=== PATIENT | male | born 1960 | race American Indian/Alaskan Native ===

== ENCOUNTER 2018-04-10 00:59 | Inpatient (IN) | payer BC ==
[2018-04-10 02:04] LABS: Basophils % (Auto) 0.3 % (0.0-1.8); Eosinophils % (Auto) 0.4 % (0.0-4.3); Hematocrit 41.1 % (35.5-45.6); Hemoglobin 13.5 gm/dl (11.8-15.2); Lymphocytes # (Auto) 1.9 K/mm3 (1.2-5.4); Lymphocytes % (Auto) 17.7 % (13.4-35.0); Mean Corpuscular HGB Conc 33 % (32-34); Mean Corpuscular Hemoglobin 28 pg (28-32); Mean Corpuscular Volume 85 fl (84-94); Monocytes # (Auto) 1.1 K/mm3 (0.0-0.8); Platelet Count 274 K/mm3 (140-440); Red Blood Count 4.82 M/mm3 (3.65-5.03); Red Cell Distribution Width 13.8 % (13.2-15.2)
[2018-04-10] MEDS ORDERED: CARDIZEM IV ONE (02:26)
[2018-04-10 02:49] LABS: BUN/Creatinine Ratio 23; Blood Urea Nitrogen 21 mg/dL (9-20); Calcium 9.2 mg/dL (8.4-10.2); Hemolysis Index 7
--- NOTE | 2018-04-10 02:57 | Emergency Department Report ---
HPI - General Chief Complaint: Dyspnea/Respdistress Time Seen by Provider: 04/10/18 02:17 - HPI HPI: 57-year-old male presents to the emergency department by EMS from home with a complaint of a one to 2 day history of some shortness of breath. Patient was found to have a pulse ox of 82% on room air. He was placed on a nonrebreather by EMS and placed on a BiPAP upon arrival. Patient is currently in atrial fibrillation with RVR which he says that he has a history of. He also has a history of CHF, hypertension and sleep apnea for which he uses a CPAP machine. He denies any chest pain, nausea, vomiting or fever. He did not take anything for her symptoms prior to presentation. His primary care physician is Dr. Ray Dooley and his pricing lead is Dr. Mathur. No recent travel or sick contacts at home. ED Past Medical Hx - Past Medical History Previous Medical History?: Yes Hx Hypertension: Yes Hx Congestive Heart Failure: Yes Hx Arthritis: Yes Additional medical history: Pancreatitis, history of Atrial fibbrillation - Social History Smoking Status: Never Smoker - Medications Home Medications: Home Medications Medication Instructions Recorded Confirmed Last Taken Type Dapagliflozin Propanediol [Farxiga] 10 mg PO DAILY 03/12/18 03/12/18 03/11/18 History Digoxin [Lanoxin] 0.25 mg PO DAILY 03/12/18 03/12/18 03/11/18 History Losartan [Cozaar] 50 mg PO QDAY 03/12/18 03/12/18 03/11/18 History Metoprolol Tartrate 100 mg PO DAILY 03/12/18 03/12/18 03/11/18 History Potassium Chloride [K-Dur] 10 meq PO QDAY 03/12/18 03/12/18 03/11/18 History Rivaroxaban [Xarelto] 10 mg PO QDAY 03/12/18 03/12/18 03/11/18 History Simvastatin [Zocor TAB] 40 mg PO QHS 03/12/18 03/12/18 03/11/18 History amLODIPine [Norvasc] 10 mg PO DAILY 03/12/18 03/12/18 03/11/18 History Diltiazem HCl [Diltiazem ER] 240 mg PO QPM #30 cap.er.deg 03/16/18 Unknown Rx ED Review of Systems ROS: Stated complaint: MICAELA Other details as noted in HPI Comment: All other systems reviewed and negative Constitutional: denies: chills, fever Eyes: denies: eye pain, eye discharge, vision change ENT: denies: ear pain, throat pain Respiratory: cough, shortness of breath Cardiovascular: denies: chest pain, edema Gastrointestinal: denies: abdominal pain, nausea, diarrhea Genitourinary: denies: urgency, dysuria Musculoskeletal: denies: back pain, joint swelling, arthralgia Skin: denies: rash, lesions Neurological: denies: headache, weakness, paresthesias Physical Exam - Physical Exam Vital Signs: Vital Signs 04/10/18 04/10/18 04/10/18 01:11 01:14 01:20 Temperature 98.9 F Pulse Rate 143 H 127 H Respiratory 20 20 Rate O2 Sat by Pulse 100 99 Oximetry 04/10/18 01:36 Temperature Pulse Rate 146 H Respiratory Rate O2 Sat by Pulse Oximetry Physical Exam: GENERAL: The patient is well-developed well-nourished. HENT: Normocephalic. Atraumatic. Patient has moist mucous membranes. EYES: Extraocular motions are intact. Pupils equal reactive to light bilaterally. NECK: Supple. Trach is midline. CHEST/LUNGS: Coarse breath sounds without chest. There is some tachypnea. No accessory muscle use and no respiratory distress while on BiPAP. HEART/CARDIOVASCULAR: Irregularly irregular with tachycardia. ABDOMEN: Abdomen is soft, nontender. Patient has normal bowel sounds. There is no abdominal distention. SKIN: Skin is warm and dry. NEURO: The patient is awake, alert, and oriented. The patient is cooperative. The patient has no focal neurologic deficits. The patient has normal speech. MUSCULOSKELETAL: There is no tenderness or deformity. There is no limitation range of motion. There is no evidence of acute injury. ED Course Vital Signs 04/10/18 04/10/18 04/10/18 01:11 01:14 01:20 Temperature 98.9 F Pulse Rate 143 H 127 H Respiratory 20 20 Rate O2 Sat by Pulse 100 99 Oximetry 04/10/18 01:36 Temperature Pulse Rate 146 H Respiratory Rate O2 Sat by Pulse Oximetry ED Medical Decision Making - Lab Data Result diagrams: 04/10/18 01:45 04/10/18 01:45 - EKG Data -: EKG Interpreted by Me - EKG Data Interpretation: unchanged when compared t (03/13/18), other (atrial fibrillation , left axis deviation, RVR at 130 bpm, prolonged QTC, nonspecific T waves) - Radiology Data Radiology results: report reviewed Chest x-ray shows patchy airspace disease in both upper lobes, left side worse than right side. Cardiomegaly. Underlying congestion cannot be excluded. - Medical Decision Making Patient presents with a few days of shortness of breath. He has a history of atrial fibrillation but appears to be in A. fib with RVR and did require Cardizem drip for rate control. Chest x-ray shows some patchy opacities that could be concerning for pneumonia versus vascular congestion/CHF. Blood cultures were obtained and the patient was started on antibiotics. He has remained on BiPAP. He will be admitted to the hospital for further evaluation and treatment and has been accepted for admission by the hospitalist, Dr. Griffith. The patient is on Xarelto and takes it compliantly so low suspicion for PE as the etiology of his symptmos. - Differential Diagnosis dysrythmia, COPD, Pneumonia, CHF Critical Care Time: No Critical care attestation.: If time is entered above; I have spent that time in minutes in the direct care of this critically ill patient, excluding procedure time. ED Disposition Clinical Impression: Atrial fibrillation with RVR Dyspnea Qualifiers: Dyspnea type: unspecified Qualified Code(s): R06.00 - Dyspnea, unspecified CHF (congestive heart failure) Qualifiers: Heart failure type: unspecified Heart failure chronicity: acute on chronic Qualified Code(s): I50.9 - Heart failure, unspecified Disposition: OP ADMIT IP TO THIS HOSP Is pt being admited?: Yes Condition: Fair Referrals: RAY DOOLEY MD [Primary Care Provider] - 3-5 Days Time of Disposition: 05:20
--- NOTE | 2018-04-10 03:14 | XRay Report ---
FINAL REPORT EXAM: XR CHEST 1V AP HISTORY: MICAELA TECHNIQUE: A portable upright view of the chest was submitted. There are no previous studies available for comparison. FINDINGS: The heart is moderately enlarged. There is patchy airspace disease particularly in both upper lobes, left side worse than right side. Underlying congestion cannot be excluded. Pleural fluid is not seen. There EKG leads overlying the chest wall. The skeletal structures are unremarkable. IMPRESSION: Patchy airspace disease in both upper lobes, left side worse than right side as described. Cardiomegaly. Underlying congestion cannot be excluded.
[2018-04-10] MEDS ORDERED: LEVAQUIN 750MG/150ML 750 MG/150 ML BAG IV ONE (03:32)
[2018-04-10] MEDS ORDERED: LASIX IV ONE ×2 (03:32→14:00)
[2018-04-10] MEDS ORDERED: LASIX ONE (04:26)
[2018-04-10] MEDS ORDERED: CARDIZEM/D5W 100MG/100ML 100 MG/100 ML BAG IV SCH (05:00)
[2018-04-10] MEDS ORDERED: SODIUM CHLORIDE FLUSH SYRINGE 10 ML IV PRN ×2 (07:55→08:04)
[2018-04-10] MEDS ORDERED: ZOFRAN IV PRN ×2 (07:55→08:04)
[2018-04-10] MEDS ORDERED: TYLENOL PO PRN ×2 (07:55→08:04)
[2018-04-10] MEDS ORDERED: PERCOCET 5/325 PO PRN (07:55)
[2018-04-10] MEDS ORDERED: MORPHINE IV PRN (07:55)
--- NOTE | 2018-04-10 08:04 | Event Note ---
Date: 04/10/18 See dictated H/p in reports A fib with RVR Pneumonia
[2018-04-10] MEDS ORDERED: DUONEB *Not for PRN Use IH ×2 (08:05→09:58)
[2018-04-10 08:35] LABS: Basophils % (Auto) 0.3 % (0.0-1.8); Eosinophils # (Auto) 0.1 K/mm3 (0.0-0.4); Hematocrit 40.6 % (35.5-45.6); Hemoglobin 13.2 gm/dl (11.8-15.2); Lymphocytes # (Auto) 2.5 K/mm3 (1.2-5.4); Lymphocytes % (Auto) 24.2 % (13.4-35.0); Mean Corpuscular HGB Conc 33 % (32-34); Mean Corpuscular Hemoglobin 28 pg (28-32); Mean Corpuscular Volume 85 fl (84-94); Monocytes # (Auto) 1.1 K/mm3 (0.0-0.8); Monocytes % (Auto) 10.6 % (0.0-7.3); Platelet Count 257 K/mm3 (140-440); Red Blood Count 4.76 M/mm3 (3.65-5.03); Red Cell Distribution Width 13.9 % (13.2-15.2)
[2018-04-10 08:45] LABS: BUN/Creatinine Ratio 21; Blood Urea Nitrogen 23 mg/dL (9-20); Calcium 8.9 mg/dL (8.4-10.2); Hemolysis Index 6
[2018-04-10] MEDS ORDERED: LOPRESSOR ONE (08:51)
[2018-04-10] MEDS: LOPRESSOR PO SCH (09:47)
[2018-04-10] MEDS: K-DUR PO SCH (09:47)
[2018-04-10] MEDS: PEPCID IV SCH ×2 (09:47→22:49)
[2018-04-10] MEDS: COZAAR PO SCH (09:47)
[2018-04-10] MEDS: LANOXIN PO SCH (09:47)
[2018-04-10] MEDS: NORVASC PO SCH (09:47)
[2018-04-10] MEDS: SODIUM CHLORIDE FLUSH SYRINGE 10 ML IV SCH ×2 (09:48→22:49)
[2018-04-10] MEDS ORDERED: SODIUM CHLORIDE FLUSH SYRINGE 10 ML IV SCH (10:00)
--- NOTE | 2018-04-10 10:13 | History and Physical Report ---
CHIEF COMPLAINT: Shortness of breath for 2 days' duration. HISTORY OF PRESENT ILLNESS: A 57-year-old -[place] male comes in for shortness of breath of 2 days' duration. In the Emergency Room, his sats was 82% on room air. He was placed on nonrebreather and placed on BiPAP upon arrival. The patient was also found in atrial fibrillation with rapid ventricular rate. No vomiting, no fever, no chills. Basic complaint was palpitations and increasing shortness of breath. PAST MEDICAL HISTORY: Significant for hypertension, congestive heart failure, arthritis, pancreatitis, history of atrial fibrillation. SMOKING HISTORY: Does not smoke. FAMILY HISTORY: Hypertension. PAST SURGICAL HISTORY: Unavailable. CURRENT MEDICATIONS: Losartan 50 mg daily, metoprolol 100 mg p.o. daily, Xarelto 10 mg p.o. daily, amlodipine 10 mg p.o. daily. REVIEW OF SYSTEMS: Significant for severe wheezing and shortness of breath. Cough productive of mucoid sputum. Otherwise, review of systems is essentially negative. PHYSICAL EXAMINATION: GENERAL: Late middle-aged male. VITAL SIGNS: Blood pressure is 113/88, temperature is 98, pulse is 133, respirations are 13. HEENT: Unremarkable. Pupils equal and reactive. NECK: Supple, no lymphadenopathy, no thyromegaly. LUNGS: Clear to auscultation and percussion. Good air entry. CARDIOVASCULAR: S1, S2 heard. No gallop, no murmur, no rub. Apical impulse in left fifth intercostal space and midclavicular line. LUNGS: Bilateral inspiratory and expiratory rhonchi present. ABDOMEN: Soft and benign. No hepatosplenomegaly. No guarding, no rigidity. Hernial orifices are normal. EXTREMITIES: Good pedal pulses. No pedal edema. CENTRAL NERVOUS SYSTEM: Alert and oriented x 4, nonfocal exam. LABORATORY DATA: Significant for chest x-ray, patchy airspace disease in both upper lobes, left side worse than right side. White count is 10,600, H and H is 13.5 and 41.1, platelet count is 274,000. The blood gas was normal, pH of 7.489, pCO2 of 38, pO2 of 99, bicarbonate of 30. Chemistries are normal. Sodium was slightly low at 136, chloride is 94.8, BUN and creatinine is 21 and 0.9. BNP is 3446. ASSESSMENT AND PLAN: 1. Acute respiratory failure secondary to chronic obstructive pulmonary disease and pneumonia. This patient initiated on IV Solu-Medrol, DuoNeb, and IV antibiotics. 2. Bilateral pneumonia, especially both upper lobes. The patient to be continued on IV antibiotics, IV Solu-Medrol, and DuoNeb. 3. Rapid ventricular rate. The patient to be continued on digoxin and Cardizem. Also, metoprolol. 4. Hypertension. Continue losartan, metoprolol, and amlodipine. 5. Type 2 diabetes mellitus. Continue and other medicines. Check hemoglobin A1c. Accu-Chek with coverage. 6. Deep venous thrombosis prophylaxis, Lovenox 40 mg subcutaneous daily. [facility]# [id number] RADHA/MELISSA
[2018-04-10] MEDS ORDERED: PROVENTIL IH PRN (10:16)
[2018-04-10] MEDS: DUONEB *Not for PRN Use IH SCH ×3 (12:58→20:26)
--- NOTE | 2018-04-10 13:14 | Event Note ---
Date: 04/10/18 Patient was seen and evaluated this morning, patient was admitted for A. fib with RVR, pneumonia. Patient patient doesn't Cardizem drip and currently off the drip and he is on by mouth Cardizem, she is on IV antibiotics. Patient is transferred to telemetry.
[2018-04-10] MEDS: XARELTO PO SCH (13:50)
[2018-04-10] MEDS: CARDIZEM PO SCH ×3 (13:50→22:48)
[2018-04-10] MEDS ORDERED: K-DUR PO ONE (14:00)
[2018-04-10] MEDS ORDERED: POTASSIUM CHLORIDE FEEDTUBE ONE (14:00)
[2018-04-10] MEDS ORDERED: CARDIZEM CD PO SCH (18:00)
[2018-04-10] MEDS ORDERED: NON-FORMULARY (Diltiazem Hcl [Diltiazem Er] 240 MG) PO SCH (18:00)
[2018-04-10] MEDS ORDERED: NON-FORMULARY (Simvastatin 40 MG) PO SCH (22:00)
[2018-04-10] MEDS ORDERED: PRAVACHOL PO SCH (22:00)
[2018-04-10] MEDS: PRAVACHOL PO SCH (22:48)
[2018-04-10] MEDS: HumaLOG SUB-Q SCH (22:49)
[2018-04-11] MEDS: CARDIZEM PO SCH ×4 (00:40→17:54)
[2018-04-11 06:34] LABS: Hematocrit 38.5 % (35.5-45.6); Hemoglobin 12.8 gm/dl (11.8-15.2); Mean Corpuscular HGB Conc 33 % (32-34); Mean Corpuscular Hemoglobin 29 pg (28-32); Mean Corpuscular Volume 86 fl (84-94); Platelet Count 248 K/mm3 (140-440); Red Blood Count 4.49 M/mm3 (3.65-5.03)
[2018-04-11 06:36] LABS: Alanine Aminotransferase 16 units/L (7-56); Albumin 3.1 g/dL (3.9-5); BUN/Creatinine Ratio 29; Blood Urea Nitrogen 29 mg/dL (9-20); Calcium 8.8 mg/dL (8.4-10.2); Hemolysis Index 3
[2018-04-11 07:16] LABS: Band Neutrophils # (Manual) 0.2 K/mm3; Basophils % (Manual) 0 % (0.0-1.8); Eosinophils % (Manual) 0 % (0.0-4.3); Total Cells Counted 100
[2018-04-11 07:17] LABS: Platelet Estimate Consistent w Auto; RBC Morphology Normal
[2018-04-11] MEDS: HumaLOG SUB-Q SCH ×4 (07:29→21:59)
[2018-04-11] MEDS: DUONEB *Not for PRN Use IH SCH ×3 (07:40→19:50)
[2018-04-11] MEDS ORDERED: LEVAQUIN 750MG/150ML 750 MG/150 ML BAG IV SCH (10:00)
--- NOTE | 2018-04-11 10:30 | Consultation ---
History of Present Illness Consult date: 04/11/18 Requesting physician: LEIDY TRAVIS Consult reason: atrial fibrillation History of present illness: This is a 57-year-old gentleman with a past medical history of alcohol abuse currently reports abstinence, permanent atrial fibrillation, hypertension, dilated cardiomyopathy, COPD, history of pancreatitis, osteoarthritis, diabetes , and sleep apnea who presents to [facility] emergency department after developing subjective fevers, weakness, and shortness of breath and wheezing. The patient reports that over the past few days he has not felt well he was evaluated by his primary care provider and a chest x-ray was inconclusive they gave him oral answer biotics. He reports that he attempted to take the medication however he did not improve. He presented to [facility] emergency Department in the emergency department the patient was hypoxic with a pulse ox of 82% on room air a 12-lead EKG revealed atrial fibrillation with a rapid ventricular response and a chest x-ray revealed bilateral patchy airspace disease left greater than right. Currently the patient reports that he feels much better. He reports compliance with his medication and denies any alcohol use. Past History Past Medical History: atrial fib, COPD, diabetes, heart failure, hypertension Past Surgical History: No surgical history Social history: alcohol abuse (remote history). denies: smoking Family history: denies: CAD Medications and Allergies Allergies Allergy/AdvReac Type Severity Reaction Status Date / Time alprazolam [From Xanax] Allergy Unknown Verified 03/12/18 07:58 lisinopril Allergy Swelling Verified 04/10/18 01:11 Home Medications Medication Instructions Recorded Confirmed Last Taken Type Dapagliflozin Propanediol [Farxiga] 10 mg PO DAILY 03/12/18 04/10/18 1 Day Ago History ~04/09/18 Digoxin [Lanoxin] 0.25 mg PO DAILY 03/12/18 04/10/18 03/11/18 History Losartan [Cozaar] 50 mg PO QDAY 03/12/18 04/10/18 1 Day Ago History ~04/09/18 Metoprolol Tartrate 100 mg PO DAILY 03/12/18 04/10/18 1 Day Ago History ~04/09/18 Potassium Chloride [K-Dur] 10 meq PO QDAY 03/12/18 04/10/18 1 Day Ago History ~04/09/18 Rivaroxaban [Xarelto] 10 mg PO QDAY 03/12/18 04/10/18 1 Day Ago History ~04/09/18 Simvastatin [Zocor TAB] 40 mg PO QHS 03/12/18 04/10/18 1 Day Ago History ~04/09/18 amLODIPine [Norvasc] 10 mg PO DAILY 03/12/18 04/10/18 1 Day Ago History ~04/09/18 Diltiazem HCl [Diltiazem ER] 240 mg PO QPM #30 cap.er.deg 03/16/18 04/10/18 1 Day Ago Rx ~04/09/18 Active Meds: Active Medications Acetaminophen (Tylenol) 650 mg PO Q4H PRN PRN Reason: Pain MILD(1-3)/Fever >100.5/PETERS Albuterol (Proventil) 2.5 mg IH Q3HRT PRN PRN Reason: Shortness Of Breath Albuterol/Ipratropium (Duoneb *Not For Prn Use*) 1 ampul IH TIDRT [facility] Amlodipine Besylate (Norvasc) 10 mg PO DAILY [facility] Last Admin: 04/10/18 09:47 Dose: 10 mg Digoxin (Lanoxin) 0.25 mg PO DAILY [facility] Last Admin: 04/10/18 09:47 Dose: 0.25 mg Diltiazem HCl (Cardizem) 60 mg PO Q6HR [facility] Last Admin: 04/11/18 05:46 Dose: 60 mg Famotidine (Pepcid) 20 mg IV BID [facility] Last Admin: 04/10/18 22:49 Dose: 20 mg Levofloxacin/Dextrose (Levaquin 750mg/150ml) 750 mg in 150 mls @ 100 mls/hr IV Q24HR [facility]; Protocol Insulin Human Isoph/Insulin Regular (Humulin 70/30) 15 unit SUB-Q BIDDIAB [facility] Insulin Human Lispro (Humalog) 0 unit SUB-Q ACHS [facility]; Protocol Last Admin: 04/11/18 07:29 Dose: 6 unit Losartan Potassium (Cozaar) 50 mg PO QDAY [facility] Last Admin: 04/10/18 09:47 Dose: 50 mg Methylprednisolone Sodium Succinate (Solu-Medrol) 60 mg IV Q8HR [facility] Last Admin: 04/11/18 05:47 Dose: 60 mg Metoprolol Tartrate (Lopressor) 100 mg PO DAILY [facility] Last Admin: 04/10/18 09:47 Dose: 100 mg Morphine Sulfate (Morphine) 2 mg IV Q4H PRN PRN Reason: Pain, Moderate (4-6) Ondansetron HCl (Zofran) 4 mg IV Q8H PRN PRN Reason: Nausea And Vomiting Oxycodone/Acetaminophen (Percocet 5/325) 1 tab PO Q6H PRN PRN Reason: Pain, Moderate (4-6) Potassium Chloride (K-Dur) 10 meq PO QDAY [facility] Last Admin: 04/10/18 09:47 Dose: 10 meq Pravastatin Sodium (Pravachol) 80 mg PO QHS [facility] Last Admin: 04/10/18 22:48 Dose: 80 mg Rivaroxaban (Xarelto) 10 mg PO QDAY [facility]; Protocol Last Admin: 04/10/18 13:50 Dose: 10 mg Sodium Chloride (Sodium Chloride Flush Syringe 10 Ml) 10 ml IV PRN PRN PRN Reason: LINE FLUSH Sodium Chloride (Sodium Chloride Flush Syringe 10 Ml) 10 ml IV BID [facility] Last Admin: 04/10/18 22:49 Dose: 10 ml Review of Systems Constitutional: fever, no weight loss, no weight gain Cardiovascular: orthopnea, shortness of breath, dyspnea on exertion, no chest pain, no palpitations, no edema, no syncope Respiratory: shortness of breath, congestion, wheezing Gastrointestinal: no abdominal pain, no nausea, no vomiting, no change in bowel habits Genitourinary Male: no hematuria, no flank pain Rectal: no pain, no incontinence Musculoskeletal: no neck pain, no shooting arm pain Integumentary: no rash, no pruritis Neurological: no head injury, no transient paralysis Psychiatric: no memory loss, no change in sleep habits Endocrine: no cold intolerance, no heat intolerance Hematologic/Lymphatic: no easy bruising, no easy bleeding Allergic/Immunologic: no urticaria, no allergic rhinitis Physical Examination Vital Signs Pulse Resp 143 H 32 H 04/10/18 01:04 04/10/18 01:04 General appearance: no acute distress HEENT: Positive: PERRL, EOMI Neck: Positive: neck supple, trachea midline Cardiac: Positive: Reg Rate and Rhythm, Regular Rate Lungs: Positive: Decreased Breath Sounds Neuro: Positive: Grossly Intact Abdomen: Positive: Unremarkable, Soft, Active Bowel Sounds Male genitourinary: Positive: deferred Skin: Negative: Rash Extremities: Present: normal. Absent: edema Results 04/11/18 05:24 04/11/18 05:24 Cardiac Enzymes 04/11/18 Range/Units 05:24 AST 16 (5-40) units/L CBC 04/11/18 Range/Units 05:24 WBC 8.0 (4.5-11.0) K/mm3 RBC 4.49 (3.65-5.03) M/mm3 Hgb 12.8 (11.8-15.2) gm/dl Hct 38.5 (35.5-45.6) % Plt Count 248 (140-440) K/mm3 Comprehensive Metabolic Panel 04/11/18 Range/Units 05:24 Sodium 133 L (137-145) mmol/L Potassium 3.6 (3.6-5.0) mmol/L Chloride 91.5 L (98-107) mmol/L Carbon Dioxide 25 (22-30) mmol/L BUN 29 H (9-20) mg/dL Creatinine 1.0 (0.8-1.5) mg/dL Glucose 409 H (75-100) mg/dL Calcium 8.8 (8.4-10.2) mg/dL AST 16 (5-40) units/L ALT 16 (7-56) units/L Alkaline Phosphatase 69 (35-129) units/L Total Protein 6.1 L (6.3-8.2) g/dL Albumin 3.1 L (3.9-5) g/dL - Imaging and Cardiology Stress echo: report reviewed (Stress MPI 03/14/18: fixed inferior defect, small fixed inferolateral, small fixed anteroseptal/apical defect, EF 2-%) Echo: report reviewed (ECHO 03/13/18: EF 20-25%, mod LVH, trace MR) EKG interpretations - Telemetry EKG Rhythm: Atrial Fibrillation Assessment and Plan Acute hypoxic respiratory failure/COPD/PNA empiric antibiotics Solumedrol IV Obstructive sleep apnea Permanent atrial fibrillation Tele: AFIB w/RVR will likely improve once respiratory status stable Continue Toprol 100 QDAY/digoxin/cardizem 60Q6 Continue Xarelto Dilated CM EF 20-25% continue Toprol/Cozaar Follow up with Dr. Mathur as outpatient [phone] HTN stable Hyperlipidemia DM ETOH abuse / ETOH withdrawal/history of pancreatitis patient reports abstinence
--- NOTE | 2018-04-11 10:30 | Consultation ---
History of Present Illness Consult date: 04/11/18 Requesting physician: HUA GALEANA Reason for consult: dyspnea, hypoxemia, obstructive sleep apnea History of present illness: 57 y/o male admitted with shortness of breath, dyspnea. Found to be in afib with rvr and required bipap therapy. Elevated BNP and Hypertensive. CXR completed showed pulmonary edema. Patient also suffers from Sleep apnea and is followed by ENT. This am he is awake and alert. On the phone in no distress on nasal cannula. Wore bipap last night. Appears to have responded well to lasix therapy. Past History Past Medical History: atrial fib, hypertension, other (SHARRI) Past Surgical History: No surgical history Social history: no significant social history Medications and Allergies Allergies Allergy/AdvReac Type Severity Reaction Status Date / Time alprazolam [From Xanax] Allergy Unknown Verified 03/12/18 07:58 lisinopril Allergy Swelling Verified 04/10/18 01:11 Home Medications Medication Instructions Recorded Confirmed Last Taken Type Dapagliflozin Propanediol [Farxiga] 10 mg PO DAILY 03/12/18 04/10/18 1 Day Ago History ~04/09/18 Digoxin [Lanoxin] 0.25 mg PO DAILY 03/12/18 04/10/18 03/11/18 History Losartan [Cozaar] 50 mg PO QDAY 03/12/18 04/10/18 1 Day Ago History ~04/09/18 Metoprolol Tartrate 100 mg PO DAILY 03/12/18 04/10/18 1 Day Ago History ~04/09/18 Potassium Chloride [K-Dur] 10 meq PO QDAY 03/12/18 04/10/18 1 Day Ago History ~04/09/18 Rivaroxaban [Xarelto] 10 mg PO QDAY 03/12/18 04/10/18 1 Day Ago History ~04/09/18 Simvastatin [Zocor TAB] 40 mg PO QHS 03/12/18 04/10/18 1 Day Ago History ~04/09/18 amLODIPine [Norvasc] 10 mg PO DAILY 03/12/18 04/10/18 1 Day Ago History ~04/09/18 Diltiazem HCl [Diltiazem ER] 240 mg PO QPM #30 cap.er.deg 03/16/18 04/10/18 1 Day Ago Rx ~04/09/18 Active Meds: Active Medications Acetaminophen (Tylenol) 650 mg PO Q4H PRN PRN Reason: Pain MILD(1-3)/Fever >100.5/PETERS Albuterol (Proventil) 2.5 mg IH Q3HRT PRN PRN Reason: Shortness Of Breath Albuterol/Ipratropium (Duoneb *Not For Prn Use*) 1 ampul IH TIDRT [facility] Amlodipine Besylate (Norvasc) 10 mg PO DAILY [facility] Last Admin: 04/10/18 09:47 Dose: 10 mg Digoxin (Lanoxin) 0.25 mg PO DAILY [facility] Last Admin: 04/10/18 09:47 Dose: 0.25 mg Diltiazem HCl (Cardizem) 60 mg PO Q6HR [facility] Last Admin: 04/11/18 05:46 Dose: 60 mg Famotidine (Pepcid) 20 mg IV BID [facility] Last Admin: 04/10/18 22:49 Dose: 20 mg Levofloxacin/Dextrose (Levaquin 750mg/150ml) 750 mg in 150 mls @ 100 mls/hr IV Q24HR [facility]; Protocol Insulin Human Isoph/Insulin Regular (Humulin 70/30) 15 unit SUB-Q BIDDIAB [facility] Insulin Human Lispro (Humalog) 0 unit SUB-Q ACHS [facility]; Protocol Last Admin: 04/11/18 07:29 Dose: 6 unit Losartan Potassium (Cozaar) 50 mg PO QDAY [facility] Last Admin: 04/10/18 09:47 Dose: 50 mg Methylprednisolone Sodium Succinate (Solu-Medrol) 60 mg IV Q8HR [facility] Last Admin: 04/11/18 05:47 Dose: 60 mg Metoprolol Tartrate (Lopressor) 100 mg PO DAILY [facility] Last Admin: 04/10/18 09:47 Dose: 100 mg Morphine Sulfate (Morphine) 2 mg IV Q4H PRN PRN Reason: Pain, Moderate (4-6) Ondansetron HCl (Zofran) 4 mg IV Q8H PRN PRN Reason: Nausea And Vomiting Oxycodone/Acetaminophen (Percocet 5/325) 1 tab PO Q6H PRN PRN Reason: Pain, Moderate (4-6) Potassium Chloride (K-Dur) 10 meq PO QDAY [facility] Last Admin: 04/10/18 09:47 Dose: 10 meq Pravastatin Sodium (Pravachol) 80 mg PO QHS [facility] Last Admin: 04/10/18 22:48 Dose: 80 mg Rivaroxaban (Xarelto) 10 mg PO QDAY [facility]; Protocol Last Admin: 04/10/18 13:50 Dose: 10 mg Sodium Chloride (Sodium Chloride Flush Syringe 10 Ml) 10 ml IV PRN PRN PRN Reason: LINE FLUSH Sodium Chloride (Sodium Chloride Flush Syringe 10 Ml) 10 ml IV BID [facility] Last Admin: 04/10/18 22:49 Dose: 10 ml Review of Systems All systems: negative Physical Examination Vital signs: Vital Signs Pulse Resp 143 H 32 H 04/10/18 01:04 04/10/18 01:04 General appearance: no acute distress, alert Eyes: non-icteric ENT: oropharynx moist Neck: supple, no lymphadenopathy Effort: normal Ascultation: Bilateral: rales Percussion: Bilateral: not dull Tactile fremitus: Bilateral: normal Cardiovascular: irregular rhythm Gastrointestinal: normoactive bowel sounds, soft, non-tender Extremities: no edema Results - Laboratory Findings CBC and BMP: 04/11/18 05:24 04/11/18 05:24 ABG POC ABG pH 7.489 (7.35-7.45) H 04/10/18 06:32 POC ABG pCO2 37.9 (35-45) 04/10/18 06:32 POC ABG pO2 99 (80-105) 04/10/18 06:32 POC ABG HCO3 28.8 04/10/18 06:32 POC ABG Total CO2 30 04/10/18 06:32 POC ABG O2 Sat 98 04/10/18 06:32 Abnormal lab findings: Abnormal Labs 04/10/18 04/10/18 04/10/18 01:45 01:45 02:22 [place] % (Auto) 10.0 H [place] # 1.1 H Seg Neutrophils % 71.6 H Seg Neuts % (Manual) Lymphocytes % (Manual) Lymphocytes # (Manual) POC ABG pH Sodium 136 L Potassium Chloride 94.8 L BUN 21 H Glucose 191 H POC Glucose NT-Pro-B Natriuret Pep 3946 H Total Protein Albumin 04/10/18 04/10/18 04/10/18 06:32 08:19 08:19 [place] % (Auto) 10.6 H [place] # 1.1 H Seg Neutrophils % Seg Neuts % (Manual) Lymphocytes % (Manual) Lymphocytes # (Manual) POC ABG pH 7.489 H Sodium 136 L Potassium 3.5 L Chloride 95.2 L BUN 23 H Glucose 195 H POC Glucose NT-Pro-B Natriuret Pep Total Protein Albumin 04/10/18 04/10/18 04/11/18 12:55 22:07 05:24 [place] % (Auto) [place] # Seg Neutrophils % Seg Neuts % (Manual) 94.0 H Lymphocytes % (Manual) 3.0 L Lymphocytes # (Manual) 0.2 L POC ABG pH Sodium Potassium Chloride BUN Glucose POC Glucose 252 H 380 H NT-Pro-B Natriuret Pep Total Protein Albumin 04/11/18 04/11/18 05:24 06:30 [place] % (Auto) [place] # Seg Neutrophils % Seg Neuts % (Manual) Lymphocytes % (Manual) Lymphocytes # (Manual) POC ABG pH Sodium 133 L Potassium Chloride 91.5 L BUN 29 H Glucose 409 H POC Glucose 338 H NT-Pro-B Natriuret Pep Total Protein 6.1 L Albumin 3.1 L - Diagnostic Findings Chest x-ray: image reviewed (as stated in HPI) Assessment and Plan 57 y/o male with afib with rvr, pulmonary edema causing respiratory failure and hypertension with SHARRI 1. Wean FiO2 as tolerated for sats >88%. Patient will need walk test prior to discharge 2. continue PPV therapy at night 3. Rate control and anticoagulation per cards 4. BP control 5. Could benefit from echo
[2018-04-11] MEDS: LEVAQUIN 750MG/150ML 750 MG/150 ML BAG IV SCH (10:46)
[2018-04-11] MEDS: SODIUM CHLORIDE FLUSH SYRINGE 10 ML IV SCH ×2 (10:47→22:01)
[2018-04-11] MEDS: LOPRESSOR PO SCH (10:47)
[2018-04-11] MEDS: PEPCID IV SCH ×2 (10:47→21:59)
[2018-04-11] MEDS: LANOXIN PO SCH (10:47)
[2018-04-11] MEDS: K-DUR PO SCH (10:47)
[2018-04-11] MEDS: XARELTO PO SCH (10:47)
[2018-04-11] MEDS: NORVASC PO SCH (10:47)
[2018-04-11] MEDS: COZAAR PO SCH (10:47)
--- NOTE | 2018-04-11 14:12 | Progress Note ---
Assessment and Plan Assessment and plan: 57-year-old -[place] male with past medical history significant for A. fib, COPD, hypertension presented to the emergency department with complaints of cough and shortness of breath. A. fib with RVR - At presentation patient treated with IV Cardizem drip, once HR was controlled it was changed to by mouth Cardizem - Continue xarelto -Cardiology is following Pneumonia - Patient is on IV antibiotic COPD exacerbation, acute hypoxic respiratory failure - Patient is on nebulizer, IV Solu-Medrol, continue antibiotic treatment DT prophylaxis Disposition - possible discharge tomorrow History Interval history: Patient was seen and evaluated this morning, patient is getting better, no SOB or palpitation. Hospitalist Physical - Physical exam Narrative exam: Not in cardiopulmonary distress. The patient appeared well nourished and normally developed. Vital signs as documented. Head exam is unremarkable. No scleral icterus . Neck is without jugular venous distension, thyromegaly, or carotid bruits. Lungs are clear to auscultation. Cardiac exam reveals irregular rate and Rhythm. Abdominal exam reveals normal bowel sounds, no masses, no organomegaly and no aortic enlargement. Extremities are nonedematous and both femoral and pedal pulses are normal. WALLPAPER HANGER: Alert and oriented 3. No focal weakness. - Constitutional Vitals: Temp Pulse Resp BP Pulse Ox 98.2 F 103 H 20 149/82 94 04/11/18 05:12 04/11/18 10:00 04/11/18 11:19 04/11/18 05:12 04/11/18 11:19 General appearance: Present: no acute distress Results - Labs CBC & Chem 7: 04/11/18 05:24 04/11/18 05:24 Labs: Laboratory Last Values WBC 8.0 K/mm3 (4.5-11.0) 04/11/18 05:24 RBC 4.49 M/mm3 (3.65-5.03) 04/11/18 05:24 Hgb 12.8 gm/dl (11.8-15.2) 04/11/18 05:24 Hct 38.5 % (35.5-45.6) 04/11/18 05:24 MCV 86 fl (84-94) 04/11/18 05:24 MCH 29 pg (28-32) 04/11/18 05:24 MCHC 33 % (32-34) 04/11/18 05:24 RDW 14.0 % (13.2-15.2) 04/11/18 05:24 Plt Count 248 K/mm3 (140-440) 04/11/18 05:24 Lymph % (Auto) 24.2 % (13.4-35.0) 04/10/18 08:19 [place] % (Auto) 10.6 % (0.0-7.3) H 04/10/18 08:19 Eos % (Auto) 1.0 % (0.0-4.3) 04/10/18 08:19 Baso % (Auto) 0.3 % (0.0-1.8) 04/10/18 08:19 Lymph # 2.5 K/mm3 (1.2-5.4) 04/10/18 08:19 [place] # 1.1 K/mm3 (0.0-0.8) H 04/10/18 08:19 Eos # 0.1 K/mm3 (0.0-0.4) 04/10/18 08:19 Baso # 0.0 K/mm3 (0.0-0.1) 04/10/18 08:19 Add Manual Diff Complete 04/11/18 05:24 Total Counted 100 04/11/18 05:24 Seg Neutrophils % Bench Mechanic 04/11/18 05:24 Seg Neuts % (Manual) 94.0 % (40.0-70.0) H 04/11/18 05:24 Band Neutrophils % 2.0 % 04/11/18 05:24 Lymphocytes % (Manual) 3.0 % (13.4-35.0) L 04/11/18 05:24 Reactive Lymphs % (Man) 0 % 04/11/18 05:24 Monocytes % (Manual) 1.0 % (0.0-7.3) 04/11/18 05:24 Eosinophils % (Manual) 0 % (0.0-4.3) 04/11/18 05:24 Basophils % (Manual) 0 % (0.0-1.8) 04/11/18 05:24 Metamyelocytes % 0 % 04/11/18 05:24 Myelocytes % 0 % 04/11/18 05:24 Promyelocytes % 0 % 04/11/18 05:24 Blast Cells % 0 % 04/11/18 05:24 Nucleated RBC % Not Reportable 04/11/18 05:24 Seg Neutrophils # 6.6 K/mm3 (1.8-7.7) 04/10/18 08:19 Seg Neutrophils # Man 7.5 K/mm3 (1.8-7.7) 04/11/18 05:24 Band Neutrophils # 0.2 K/mm3 04/11/18 05:24 Lymphocytes # (Manual) 0.2 K/mm3 (1.2-5.4) L 04/11/18 05:24 Abs React Lymphs (Man) 0.0 K/mm3 04/11/18 05:24 Monocytes # (Manual) 0.1 K/mm3 (0.0-0.8) 04/11/18 05:24 Eosinophils # (Manual) 0.0 K/mm3 (0.0-0.4) 04/11/18 05:24 Basophils # (Manual) 0.0 K/mm3 (0.0-0.1) 04/11/18 05:24 Metamyelocytes # 0.0 K/mm3 04/11/18 05:24 Myelocytes # 0.0 K/mm3 04/11/18 05:24 Promyelocytes # 0.0 K/mm3 04/11/18 05:24 Blast Cells # 0.0 K/mm3 04/11/18 05:24 WBC Morphology Not Reportable 04/11/18 05:24 Hypersegmented Neuts Not Reportable 04/11/18 05:24 Hyposegmented Neuts Not Reportable 04/11/18 05:24 Hypogranular Neuts Not Reportable 04/11/18 05:24 Smudge Cells Not Reportable 04/11/18 05:24 Toxic Granulation Not Reportable 04/11/18 05:24 Toxic Vacuolation Not Reportable 04/11/18 05:24 Dohle Bodies Not Reportable 04/11/18 05:24 Pelger-Huet Anomaly Not Reportable 04/11/18 05:24 Barron Rods Not Reportable 04/11/18 05:24 Platelet Estimate Consistent w auto 04/11/18 05:24 Clumped Platelets Not Reportable 04/11/18 05:24 Plt Clumps, EDTA Not Reportable 04/11/18 05:24 Large Platelets Not Reportable 04/11/18 05:24 Giant Platelets Not Reportable 04/11/18 05:24 Platelet Satelliting Not Reportable 04/11/18 05:24 Plt Morphology Comment Not Reportable 04/11/18 05:24 RBC Morphology Normal 04/11/18 05:24 Dimorphic RBCs Not Reportable 04/11/18 05:24 Polychromasia Not Reportable 04/11/18 05:24 Hypochromasia Not Reportable 04/11/18 05:24 Poikilocytosis Not Reportable 04/11/18 05:24 Anisocytosis Not Reportable 04/11/18 05:24 Microcytosis Not Reportable 04/11/18 05:24 Macrocytosis Not Reportable 04/11/18 05:24 Spherocytes Not Reportable 04/11/18 05:24 Pappenheimer Bodies Not Reportable 04/11/18 05:24 Sickle Cells Not Reportable 04/11/18 05:24 Target Cells Not Reportable 04/11/18 05:24 Tear Drop Cells Not Reportable 04/11/18 05:24 Ovalocytes Not Reportable 04/11/18 05:24 Helmet Cells Not Reportable 04/11/18 05:24 Causey-Pierre Bodies Not Reportable 04/11/18 05:24 [place] Rings Not Reportable 04/11/18 05:24 Stanton Cells Not Reportable 04/11/18 05:24 Bite Cells Not Reportable 04/11/18 05:24 Crenated Cell Not Reportable 04/11/18 05:24 Elliptocytes Not Reportable 04/11/18 05:24 Acanthocytes (Spur) Not Reportable 04/11/18 05:24 Rouleaux Not Reportable 04/11/18 05:24 Hemoglobin C Crystals Not Reportable 04/11/18 05:24 Schistocytes Not Reportable 04/11/18 05:24 Malaria parasites Not Reportable 04/11/18 05:24 Dejan Bodies Not Reportable 04/11/18 05:24 Hem Pathologist Commnt No 04/11/18 05:24 POC ABG pH 7.489 (7.35-7.45) H 04/10/18 06:32 POC ABG pCO2 37.9 (35-45) 04/10/18 06:32 POC ABG pO2 99 (80-105) 04/10/18 06:32 POC ABG HCO3 28.8 04/10/18 06:32 POC ABG Total CO2 30 04/10/18 06:32 POC ABG O2 Sat 98 04/10/18 06:32 POC ABG Base Excess 5 04/10/18 06:32 FiO2 50 % 04/10/18 06:32 Sodium 133 mmol/L (137-145) L 04/11/18 05:24 Potassium 3.6 mmol/L (3.6-5.0) 04/11/18 05:24 Chloride 91.5 mmol/L (98-107) L 04/11/18 05:24 Carbon Dioxide 25 mmol/L (22-30) 04/11/18 05:24 Anion Gap 20 mmol/L 04/11/18 05:24 BUN 29 mg/dL (9-20) H 04/11/18 05:24 Creatinine 1.0 mg/dL (0.8-1.5) 04/11/18 05:24 Estimated GFR > 60 ml/min 04/11/18 05:24 BUN/Creatinine Ratio 29 % 04/11/18 05:24 Glucose 409 mg/dL (75-100) H 04/11/18 05:24 POC Glucose 452 (70-105) H 04/11/18 11:43 Calcium 8.8 mg/dL (8.4-10.2) 04/11/18 05:24 Total Bilirubin 0.60 mg/dL (0.1-1.2) 04/11/18 05:24 AST 16 units/L (5-40) 04/11/18 05:24 ALT 16 units/L (7-56) 04/11/18 05:24 Alkaline Phosphatase 69 units/L (35-129) 04/11/18 05:24 Troponin T 0.029 ng/mL (0.00-0.029) 04/10/18 01:45 NT-Pro-B Natriuret Pep 3946 pg/mL (0-900) H 04/10/18 02:22 Total Protein 6.1 g/dL (6.3-8.2) L 04/11/18 05:24 Albumin 3.1 g/dL (3.9-5) L 04/11/18 05:24 Albumin/Globulin Ratio 1.0 % 04/11/18 05:24
[2018-04-11] MEDS: PRAVACHOL PO SCH (21:59)
[2018-04-11] MEDS ORDERED: HumaLOG SUB-Q ONE (22:25)
[2018-04-12] MEDS ORDERED: AMBIEN PO ONE (00:55)
[2018-04-12] MEDS: CARDIZEM PO SCH ×2 (01:07→06:38)
[2018-04-12] MEDS: HumaLOG SUB-Q SCH ×7 (06:37→22:46)
[2018-04-12] MEDS: DUONEB *Not for PRN Use IH SCH ×3 (07:27→19:25)
[2018-04-12] MEDS: LOPRESSOR PO SCH (08:30)
[2018-04-12] MEDS: LANOXIN PO SCH (08:30)
[2018-04-12] MEDS ORDERED: LASIX PO SCH (10:00)
[2018-04-12] MEDS: NORVASC PO SCH (10:41)
[2018-04-12] MEDS: PEPCID IV SCH (10:41)
[2018-04-12] MEDS: XARELTO PO SCH (10:41)
[2018-04-12] MEDS: COZAAR PO SCH (10:41)
[2018-04-12] MEDS: K-DUR PO SCH (10:41)
--- NOTE | 2018-04-12 10:41 | Progress Note ---
Assessment and Plan Assessment/Plan: Acute HFrEF, EF 20-25% less likely pneumonia, will d/c IV steroids initiate lasix 40mg IV BID, check BMP and magnesium level continue toprol xl, lisinopril strict I/Os counseled low sodium, fluid restricted diet Permanent atrial fibrillation Tele: AFIB w/CVR Increase Toprol xl to 150mg QDAY D/c digoxin and cardizem Continue Xarelto Dilated CM EF 20-25% continue Toprol/Cozaar Follow up with Dr. Mathur as outpatient [phone] HTN stable continue norvasc, losartan, toprol xl Obstructive sleep apnea Hyperlipidemia check lipid panel in am DM counseled on diabetic diet ETOH abuse / ETOH withdrawal/history of pancreatitis patient reports abstinence The patient has been seen in conjunction with Dr. Hartman who agrees with the assessment and plan of care. Subjective Date of service: 04/12/18 Principal diagnosis: acute on chronic HFrEF Interval history: The patient is resting comfortably in bed. Shortness of breath improved. Atrial fibrillation on the monitor with HR 90s. Objective Last Vital Signs Temp 98.6 F 04/12/18 08:13 Pulse 143 H 04/12/18 08:39 Resp 18 04/12/18 08:39 BP 131/75 04/12/18 08:13 Pulse Ox 95 04/12/18 08:13 - Physical Examination General: No Apparent Distress HEENT: Positive: PERRL, EOMI Neck: Positive: neck supple, trachea midline Cardiac: Positive: irregularly irregular, S1/S2, S3 Lungs: Positive: clear to auscultation Neuro: Positive: Grossly Intact Abdomen: Positive: Unremarkable, Soft, Active Bowel Sounds Skin: Negative: Rash Extremities: Present: normal. Absent: edema - Imaging and Cardiology Stress echo: report reviewed (Stress MPI 03/14/18: fixed inferior defect, small fixed inferolateral, small fixed anteroseptal/apical defect, EF 20%) Echo: report reviewed (ECHO 03/13/18: EF 20-25%, mod LVH, trace MR) - Telemetry EKG Rhythm: Atrial Fibrillation
[2018-04-12] MEDS: LEVAQUIN 750MG/150ML 750 MG/150 ML BAG IV SCH (10:42)
[2018-04-12 10:45] LABS: BUN/Creatinine Ratio 32; Blood Urea Nitrogen 32 mg/dL (9-20); Calcium 9.1 mg/dL (8.4-10.2); Hemolysis Index 0
[2018-04-12] MEDS: SODIUM CHLORIDE FLUSH SYRINGE 10 ML IV SCH ×2 (10:47→21:16)
--- NOTE | 2018-04-12 11:43 | Discharge Summary ---
Providers - Providers Date of Admission: 04/10/18 07:55 Attending physician: HUA GALEANA MD 04/10/18 07:55 Consult to Physician [CONS] Routine Comment: Consulting Provider: VITALY LONGORIA Physician Instructions: Reason For Exam: Rapid afib 04/10/18 10:49 Consult to Physician [CONS] Stat Comment: Consulting Provider: DONTE WOODRUFF Physician Instructions: Reason For Exam: CCU admission Primary care physician: RAY SHORE Hospitalization Reason for admission: A fib with RVR, pneumonia Condition: Stable Pertinent studies: Chest x-ray bilateral airspace disease Hospital course: 57-year-old -[place] male with past medical history significant for A. fib, COPD, hypertension presented to the emergency department with complaints of cough and shortness of breath. A. fib with RVR - At presentation patient treated with IV Cardizem drip, once HR was controlled it was changed to by mouth Cardizem - Continue xarelto -Cardiology recmmend to D/C and increased toprol to 150, digoxin discontinued -Cleared him for discharge Pneumonia - Patient was treated IV antibiotic and discharged with by mouth Levaquin Patient has sleep apnea and on CPAP at home. Patient's was saturating well at room temperature. Patient is hemodynamically stable at time of discharge. Patient will follow with cardiology with Dr. Crook. Appropriate medication scripts were given. Disposition: [id number] TO HOME OR SELFCARE Time spent for discharge: 34 minutes - Discharge Diagnoses (1) Atrial fibrillation with RVR Status: Acute (2) Pneumonia Status: Acute Qualifiers: Pneumonia type: due to unspecified organism Laterality: bilateral Lung location: upper lobe of lung Qualified Code(s): J18.1 - Lobar pneumonia, unspecified organism Core Measure Documentation - Palliative Care Palliative Care/ Comfort Measures: Not Applicable - Core Measures Any of the following diagnoses?: none Exam - Physical Exam Narrative exam: Not in cardiopulmonary distress. The patient appeared well nourished and normally developed. Vital signs as documented. Head exam is unremarkable. No scleral icterus . Neck is without jugular venous distension, thyromegaly, or carotid bruits. Lungs are clear to auscultation. Cardiac exam reveals irregular rate and Rhythm. Abdominal exam reveals normal bowel sounds, no masses, no organomegaly and no aortic enlargement. Extremities are nonedematous and both femoral and pedal pulses are normal. 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 No focal weakness. - Constitutional Vitals: Temp Pulse Resp BP Pulse Ox 98.6 F 95 H 18 131/75 95 04/12/18 08:13 04/12/18 10:41 04/12/18 08:39 04/12/18 08:13 04/12/18 08:13 Plan Activity: no restrictions Weight Bearing Status: Full Weight Bearing Diet: low salt, diabetic Follow up with: RAY SHORE MD [Primary Care Provider] - 3-5 Days Prescriptions: Levofloxacin [Levaquin] 750 mg PO QDAY #7 tablet
[2018-04-12] MEDS: LASIX IV SCH ×2 (12:00→19:42)
--- NOTE | 2018-04-12 13:32 | Progress Note ---
Assessment and Plan Imp: 1. Dilated CMP 2. A/C systolic CHF 3. Acute respiratory failure, hypoxia 4. SHARRI 5. Chronic afib Rec: 1. Agree with IV Lasix 2. CXR again in AM 3. Stop steroids 4. Okay to complete brief ~ 5 day course of Levaquin 5. CPAP vs. BIPAP QHS in hospital; resume CPAP at home once discharged Plan of care reviewed with patient, he understands/agrees Subjective Date of service: 04/12/18 Principal diagnosis: acute on chronic HFrEF Interval history: No events. SOB better. No fevers, cough, chest pain. Active Medications Acetaminophen (Tylenol) 650 mg PO Q4H PRN PRN Reason: Pain MILD(1-3)/Fever >100.5/PETERS Albuterol (Proventil) 2.5 mg IH Q3HRT PRN PRN Reason: Shortness Of Breath Albuterol/Ipratropium (Duoneb *Not For Prn Use*) 1 ampul IH TIDRT [facility] Last Admin: 04/12/18 07:27 Dose: 1 ampul Amlodipine Besylate (Norvasc) 10 mg PO DAILY [facility] Last Admin: 04/12/18 10:41 Dose: 10 mg Famotidine (Pepcid) 20 mg IV BID [facility] Last Admin: 04/12/18 10:41 Dose: 20 mg Furosemide (Lasix) 40 mg IV 0600,1800 [facility] Last Admin: 04/12/18 12:00 Dose: 40 mg Levofloxacin/Dextrose (Levaquin 750mg/150ml) 750 mg in 150 mls @ 100 mls/hr IV Q24HR [facility]; Protocol Last Admin: 04/12/18 10:42 Dose: 100 mls/hr Insulin Human Isoph/Insulin Regular (Humulin 70/30) 15 unit SUB-Q BIDDIAB [facility] Last Admin: 04/12/18 08:34 Dose: 15 unit Insulin Human Lispro (Humalog) 0 unit SUB-Q ACHS [facility]; Protocol Last Admin: 04/12/18 06:37 Dose: 10 unit Insulin Human Lispro (Humalog) 10 unit SUB-Q ACHS [facility] Last Admin: 04/12/18 11:59 Dose: 10 unit Losartan Potassium (Cozaar) 50 mg PO QDAY [facility] Last Admin: 04/12/18 10:41 Dose: 50 mg Metoprolol Succinate (Toprol Xl) 150 mg PO QDAY [facility] Morphine Sulfate (Morphine) 2 mg IV Q4H PRN PRN Reason: Pain, Moderate (4-6) Ondansetron HCl (Zofran) 4 mg IV Q8H PRN PRN Reason: Nausea And Vomiting Oxycodone/Acetaminophen (Percocet 5/325) 1 tab PO Q6H PRN PRN Reason: Pain, Moderate (4-6) Potassium Chloride (K-Dur) 10 meq PO QDAY [facility] Last Admin: 04/12/18 10:41 Dose: 10 meq Pravastatin Sodium (Pravachol) 80 mg PO QHS [facility] Last Admin: 04/11/18 21:59 Dose: 80 mg Rivaroxaban (Xarelto) 10 mg PO QDAY [facility]; Protocol Last Admin: 04/12/18 10:41 Dose: 10 mg Sodium Chloride (Sodium Chloride Flush Syringe 10 Ml) 10 ml IV PRN PRN PRN Reason: LINE FLUSH Sodium Chloride (Sodium Chloride Flush Syringe 10 Ml) 10 ml IV BID [facility] Last Admin: 04/11/18 22:01 Dose: 10 ml Objective Vital Signs - 12hr 04/12/18 04/12/18 04/12/18 04:08 07:27 07:37 Temperature Pulse Rate 103 H Pulse Rate [ 115 H 120 H Anterior Bilateral Throughout] Pulse Rate [ Apical] Respiratory 24 Rate Respiratory 20 20 Rate [Anterior Bilateral Throughout] Blood Pressure 124/78 Blood Pressure [Left] O2 Sat by Pulse 96 97 Oximetry 04/12/18 04/12/18 04/12/18 08:13 08:30 08:39 Temperature 98.6 F Pulse Rate 99 H 140 H Pulse Rate [ Anterior Bilateral Throughout] Pulse Rate [ 143 H Apical] Respiratory 22 18 Rate Respiratory Rate [Anterior Bilateral Throughout] Blood Pressure Blood Pressure 131/75 [Left] O2 Sat by Pulse 95 Oximetry 04/12/18 04/12/18 10:41 11:31 Temperature 98.6 F Pulse Rate 95 H 95 H Pulse Rate [ Anterior Bilateral Throughout] Pulse Rate [ Apical] Respiratory 20 Rate Respiratory Rate [Anterior Bilateral Throughout] Blood Pressure 131/84 Blood Pressure [Left] O2 Sat by Pulse 91 Oximetry Constitutional: no acute distress, alert Eyes: non-icteric ENT: oropharynx moist Neck: supple, no lymphadenopathy Effort: normal Ascultation: Bilateral: clear Cardiovascular: irregular rhythm (no mrg) Gastrointestinal: normoactive bowel sounds, soft, non-tender, non-distended Integumentary: normal Extremities: no cyanosis, no edema, pink and warm Neurologic: normal mental status, non-focal exam, pupils equal and round, CN II- XII normal Psychiatric: mood appropriate, affect normal CBC and BMP: 04/11/18 05:24 04/12/18 09:35 ABG, PT/INR, D-dimer: ABG POC ABG pH 7.489 (7.35-7.45) H 04/10/18 06:32 POC ABG pCO2 37.9 (35-45) 04/10/18 06:32 POC ABG pO2 99 (80-105) 04/10/18 06:32 POC ABG HCO3 28.8 04/10/18 06:32 POC ABG Total CO2 30 04/10/18 06:32 POC ABG O2 Sat 98 04/10/18 06:32 Abnormal lab findings: Abnormal Labs 04/10/18 04/10/18 04/10/18 01:45 01:45 02:22 [place] % (Auto) 10.0 H [place] # 1.1 H Seg Neutrophils % 71.6 H Seg Neuts % (Manual) Lymphocytes % (Manual) Lymphocytes # (Manual) POC ABG pH Sodium 136 L Potassium Chloride 94.8 L BUN 21 H Glucose 191 H POC Glucose Magnesium NT-Pro-B Natriuret Pep 3946 H Total Protein Albumin 04/10/18 04/10/18 04/10/18 06:32 08:19 08:19 [place] % (Auto) 10.6 H [place] # 1.1 H Seg Neutrophils % Seg Neuts % (Manual) Lymphocytes % (Manual) Lymphocytes # (Manual) POC ABG pH 7.489 H Sodium 136 L Potassium 3.5 L Chloride 95.2 L BUN 23 H Glucose 195 H POC Glucose Magnesium NT-Pro-B Natriuret Pep Total Protein Albumin 04/10/18 04/10/18 04/11/18 12:55 22:07 05:24 [place] % (Auto) [place] # Seg Neutrophils % Seg Neuts % (Manual) 94.0 H Lymphocytes % (Manual) 3.0 L Lymphocytes # (Manual) 0.2 L POC ABG pH Sodium Potassium Chloride BUN Glucose POC Glucose 252 H 380 H Magnesium NT-Pro-B Natriuret Pep Total Protein Albumin 04/11/18 04/11/18 04/11/18 05:24 06:30 11:43 [place] % (Auto) [place] # Seg Neutrophils % Seg Neuts % (Manual) Lymphocytes % (Manual) Lymphocytes # (Manual) POC ABG pH Sodium 133 L Potassium Chloride 91.5 L BUN 29 H Glucose 409 H POC Glucose 338 H 452 H Magnesium NT-Pro-B Natriuret Pep Total Protein 6.1 L Albumin 3.1 L 04/11/18 04/11/18 04/12/18 16:58 21:14 06:22 [place] % (Auto) [place] # Seg Neutrophils % Seg Neuts % (Manual) Lymphocytes % (Manual) Lymphocytes # (Manual) POC ABG pH Sodium Potassium Chloride BUN Glucose POC Glucose 413 H 477 H 392 H Magnesium NT-Pro-B Natriuret Pep Total Protein Albumin 04/12/18 09:35 [place] % (Auto) [place] # Seg Neutrophils % Seg Neuts % (Manual) Lymphocytes % (Manual) Lymphocytes # (Manual) POC ABG pH Sodium Potassium Chloride 95.5 L BUN 32 H Glucose 508 H* POC Glucose Magnesium 2.40 H NT-Pro-B Natriuret Pep Total Protein Albumin Chest x-ray: report reviewed, image reviewed (bilateral infiltrates)
[2018-04-12] MEDS ORDERED: HumuLIN R SUB-Q ONE ×2 (17:00→18:20)
[2018-04-12] MEDS: TOPROL XL PO SCH (18:30)
[2018-04-12] MEDS ORDERED: HumaLOG SUB-Q ONE (20:44)
[2018-04-12] MEDS: PRAVACHOL PO SCH (21:16)
[2018-04-12] MEDS: PEPCID PO SCH (21:16)
[2018-04-13] MEDS: LASIX IV SCH (06:16)
--- NOTE | 2018-04-13 08:26 | XRay Report ---
AP CHEST: HISTORY: CHF Bilateral infiltrates or pulmonary edema have decreased by 50% since 04/10/18. I favor improvement in pulmonary edema. Mild cardiomegaly is relatively stable. The lungs are clear. No large pleural effusion or pneumothorax. IMPRESSION: Near resolution of the bilateral infiltrates or pulmonary edema. Stable mild cardiomegaly.
[2018-04-13] MEDS: DUONEB *Not for PRN Use IH SCH (08:40)
[2018-04-13] MEDS: HumaLOG SUB-Q SCH ×2 (08:43)
[2018-04-13 09:01] VITALS: BP 128/83
[2018-04-13] MEDS: XARELTO PO SCH (09:38)
[2018-04-13] MEDS: TOPROL XL PO SCH (09:38)
[2018-04-13] MEDS: PEPCID PO SCH (09:39)
[2018-04-13] MEDS: NORVASC PO SCH (09:39)
[2018-04-13] MEDS: COZAAR PO SCH (09:39)
[2018-04-13] MEDS: K-DUR PO SCH (09:39)
[2018-04-13] MEDS: SODIUM CHLORIDE FLUSH SYRINGE 10 ML IV SCH (09:40)
[2018-04-13] MEDS ORDERED: LEVAQUIN PO SCH (10:00)
--- NOTE | 2018-04-13 10:57 | Progress Note ---
Assessment and Plan Assessment/Plan: Acute HFrEF, EF 20-25% less likely pneumonia, will d/c IV steroids cont lasix 40mg IV BID. continue toprol xl, lisinopril strict I/Os counseled low sodium, fluid restricted diet CXR shows improvement Permanent atrial fibrillation Resume remote telemetry. Tachycardia noted on examination this AM. Toprol xl was increased to 150mg QDAY from today. will observe response. D/c digoxin and cardizem Continue Xarelto Dilated CM EF 20-25% continue Toprol/Cozaar Stress MPI 03/14/18: fixed inferior defect, small fixed inferolateral, small fixed anteroseptal/apical defect HTN stable continue norvasc, losartan, toprol xl Obstructive sleep apnea Hyperlipidemia await lipid panel DM counseled on diabetic diet ETOH abuse / ETOH withdrawal / history of pancreatitis patient reports abstinence The patient has been seen in conjunction with Dr. Hartman who agrees with the assessment and plan of care. Subjective Date of service: 04/13/18 Principal diagnosis: acute on chronic HFrEF Interval history: pt resting comfortably in bed, states he is feeling better today, SOB improving. not on telemetry. Objective Last Vital Signs Temp 97.7 F 04/13/18 08:59 Pulse 92 H 04/13/18 09:39 Resp 22 04/13/18 09:00 BP 128/83 04/13/18 09:39 Pulse Ox 98 04/13/18 09:00 - Physical Examination General: No Apparent Distress HEENT: Positive: PERRL, EOMI Neck: Positive: neck supple, trachea midline Cardiac: Positive: irregularly irregular, S1/S2, Tachycardia Lungs: Positive: Decreased Breath Sounds Neuro: Positive: Grossly Intact Abdomen: Positive: Unremarkable, Soft, Active Bowel Sounds Skin: Negative: Rash Musculoskeletal: No Fluid Collection, No Pain, Normal Range of Motion Extremities: Present: normal. Absent: edema - Imaging and Cardiology Stress echo: report reviewed (Stress MPI 03/14/18: fixed inferior defect, small fixed inferolateral, small fixed anteroseptal/apical defect, EF 20%) Echo: report reviewed (ECHO 03/13/18: EF 20-25%, mod LVH, trace MR)
--- NOTE | 2018-04-13 15:59 | Event Note ---
Date: 04/13/18 Patient seen and examined this morning. Anticipated for discharge today. Discharge was held yesterday due to blood sugar. Clinically improved understands all the recommended management plan including water restriction. patient is a 57-year-old -[place] male with past medical history significant for A. fib, COPD, hypertension presented to the emergency department with complaints of cough and shortness of breath. At presentation patient treated with IV Cardizem drip, once HR was controlled it was changed to by mouth Cardizem, Continue xarelto, Cardiology recmmend to D/C and increased toprol to 150, digoxin discontinued. He will follow with cardiology. He was also treated for Pneumonia with IV abx and changed to Levaquin on discharge. He will continue with his home CPAP. Fluid restriction and salt restriction was discussed in detail with the patient. I will continue with Xarelto does have extensive discussion with the patient about blood sugar control the patient verbalized understanding of VITAL SIGNS: Reviewed. GENERAL: The patient appeared well nourished and normally developed. Vital signs as documented. HEAD: No signs of head trauma. EYES: Pupils are equal. Extraocular motions intact. EARS: Hearing grossly intact. MOUTH: Oropharynx is normal. NECK: No adenopathy, no JVD. CHEST: Chest with clear breath sounds bilaterally. No wheezes, rales, or rhonchi. CARDIAC: Irregularly irregular. S1 and S2, without murmurs, gallops, or rubs. VASCULAR: No Edema. Peripheral pulses normal and equal in all extremities. ABDOMEN: Soft, without detectable tenderness. No sign of distention. No rebound or guarding, and no masses palpated. Bowel Sounds normal. MUSCULOSKELETAL: Good range of motion of all major joints. Extremities without clubbing, cyanosis or edema. NEUROLOGIC EXAM: Alert and oriented x 3. No focal sensory or strength deficits. Speech normal. Follows commands. PSYCHIATRIC: Mood normal. SKIN: No rash or lesions. Discharge Diagnosis A. fib with RVR Pneumonia SHARRI Acute systolic congestive heart failure with EF of 25% Dilated cardiomyopathy Hypertension Hyperlipidemia Diabetes mellitus 35 minutes spent with patient prior to discharge.
[2018-04-13 17:01] LABS: Chol/HDL Ratio 6.04 %
== END 2018-04-13 12:02 | disposition home or self-care (01) | DRG 291 ==
LOC: ED 00:59 → CC1 07:55 → 4A 18:04
PROVIDERS: ADMIT Internal Medicine; ATTEND Internal Medicine
PROC: 5A09357 Assistance with Respiratory Ventilation, Less than 24 Consecutive Hours, Continuous Positive Airway Pressure (ICD-10-PCS; principal; 2018-04-10)
PROC: 4A033R1 Measurement of Arterial Saturation, Peripheral, Percutaneous Approach (ICD-10-PCS; 2018-04-10)
PROC: 5A09357 Assistance with Respiratory Ventilation, Less than 24 Consecutive Hours, Continuous Positive Airway Pressure (ICD-10-PCS; 2018-04-11)
PROC: 5A09357 Assistance with Respiratory Ventilation, Less than 24 Consecutive Hours, Continuous Positive Airway Pressure (ICD-10-PCS; 2018-04-12)
DX: I11.0 Hypertensive heart disease with heart failure (principal); J18.1 Lobar pneumonia, unspecified organism; J96.01 Acute respiratory failure with hypoxia; J44.0 Chronic obstructive pulmonary disease with (acute) lower respiratory infection; J81.1 Chronic pulmonary edema; J44.1 Chronic obstructive pulmonary disease with (acute) exacerbation; I50.23 Acute on chronic systolic (congestive) heart failure; I42.0 Dilated cardiomyopathy; G47.33 Obstructive sleep apnea (adult) (pediatric); E11.9 Type 2 diabetes mellitus without complications; I48.2 Chronic atrial fibrillation; E78.5 Hyperlipidemia, unspecified; F10.10 Alcohol abuse, uncomplicated; Y90.9 Presence of alcohol in blood, level not specified; Z82.49 Family history of ischemic heart disease and other diseases of the circulatory system; Z88.6 Allergy status to analgesic agent; Z88.8 Allergy status to other drugs, medicaments and biological substances; Z79.01 Long term (current) use of anticoagulants
CPT/HCPCS: 36415; 71045; 80048; 80053; 80061; 82803; 82962; 83735; 83880; 84484; 85007; 85025; 87040; 93005; 93010; 94640; 94660; 94760; A9270-GY; J1815; J1940; J1956; J2930

== ENCOUNTER 2018-04-14 11:00 | Outpatient (CLI) | payer BC | END 2018-04-14 11:01 | disposition home or self-care (01) | LOC: SLR 11:00 | PROVIDERS: ATTEND Otolaryngology | DX: G47.33 Obstructive sleep apnea (adult) (pediatric) (principal) | CPT/HCPCS: 95811 ==